=== PATIENT | male | born 1975 | race Caucasian/White ===

== ENCOUNTER 2024-08-12 15:23 | Emergency (ER) | payer OTHER, SELFPAY ==
--- NOTE | ~2024-08-12 | CT_ITS ---
CTA chest PE protocol Ordering provider: Josue Gutierrez MD History: 48 years Male with . syncope. elevated dimer . Comparison: None. Technique: CT angiogram chest was performed following timed intravenous injection of contrast. Thin s lice axial images and reformatted coronal images were obtained. Three dimensional reformatted images of the chest were also obtained using a [employer] workstation. . Automated exposure control and iterati ve reconstruction technique were employed. The dose-length product was 891.37 mGy-cm. 100 mL Omnipaqu e 350 was given IV. Findings: PULMONARY ARTERIES: No pulmonary embolus. VISUALIZED THORACIC INLET: Normal. MEDIASTINUM: Aorta/coronary arteries: The thoracic aorta is normal. Heart/other: The heart is not enlarged. Lymph nodes: No mediastinal or hilar adenopathy. LUNGS: No pulmonary nodules or masses. No infiltrates or effusions. No pneumothorax. VISUALIZED UPPER ABDOMEN: the visualized upper abdomen is normal. MUSCULOSKELETAL: Soft tissues: The superficial soft tissues are normal. Bones: Age appropriate degenerative changes of the spine. IMPRESSION: No pulmonary embolism. No acute cardiopulmonary pathology. Reviewed, dictated and finalized at location A.
--- NOTE | ~2024-08-12 | CT_ITS ---
CT brain wo con Ordering provider: Patricia Lindsey APRN History: 48 years Male with . syncopal episode . Comparison: None. Technique: CT of the head without contrast. Radiation reduction technique utilized.The dose-length pr oduct was 605.33 mGy-cm. FINDINGS: BRAIN PARENCHYMA AND CSF SPACES: No midline shift, mass effect or hemorrhage. The brain parenchyma a nd CSF spaces are otherwise normal. VISUALIZED PARANASAL SINUSES: Left maxillary sinus disease. Otherwise, Well aerated. MASTOIDS: Well aerated. BONES: The bones appear intact. SOFT TISSUES: Visualized nasopharynx is normal. Superficial soft tissues are normal. IMPRESSION: No acute intracranial findings. Reviewed, dictated and finalized at location A.
--- NOTE | ~2024-08-12 | XR_ITS ---
XR chest 2V Ordering provider: Patricia Lindsey APRN History: 48 years Male with . syncopal episode, unknown cause . Comparison: None. FINDINGS: MEDIASTINUM: The cardiac silhouette is not enlarged. LUNGS: No infiltrates, effusions or pneumothorax. OTHER: No free air under the diaphragm. IMPRESSION: No acute cardiopulmonary pathology. Reviewed, dictated and finalized at location A.
[2024-08-12 16:20] VITALS: BP 149/93; PULSE 84; RESP 16; TEMP 36.6; O2SAT 99
--- NOTE | 2024-08-12 16:27 | ECG_ITS ---
Test Date: 2024-08-12 18:29:54 Measurements Intervals [place] Rate: 74 P: 41 MI: 184 QRS: 5 QRSD: 93 T: 19 QT: 367 QTc: 409 Interpretive Statements SINUS RHYTHM DELAYED PRECORDIAL R/S TRANSITION BASELINE ARTIFACT- I, II, III, AVR, AVL, AVF, V1-V2 BORDERLINE ECG No previous ECG available for comparison Electronically Signed On 08-12-2024 20:36:52 CDT by Kaivn Becker D.O.
--- NOTE | 2024-08-12 16:32 | ED.SYNCOPE ---
HPI - Syncope General Chief Complaint: Syncope <Patriciagosia Lindsey ADULT CARE MANAGER - Last Filed: 08/12/24 16:37> Stated Complaint: syncope <Patricia Fiore ANGELICA LindseyN - Last Filed: 08/12/24 16:37> Time Seen by Provider: 08/12/24 16:15 <Patricia Macarena Lindsey ADULT CARE MANAGER - Last Filed: 08/12/24 16:37> Focused HPI: Patient is a 48-year-old male who presents to the ER following a syncopal episode immediately prior to arrival. His family member reports they were eating dinner, sitting at a table, patient was talking when all of a sudden he ?slumped over. Patient's family member reports patient did not hit his head. The episode lasted approximately 30 seconds and pt was doing a little twitching afterwards. Pt did not have any episodes of choking prior to the event. Since the episode, patient reports he feels ?off. Patient denies any history of seizures, cardiac events or drug use. He denies any other medical history in reports I have not seen a doctor in 15 years. GENERAL: Well-appearing, well-nourished, and in no acute distress. HEAD: Normocephalic, atraumatic. CHEST: Clear to auscultation. ?No respiratory distress. HEART: Regular rate and rhythm.? NEURO: ?Alert and oriented x3. Cranial nerves intact. Patient screened in triage and initial orders placed.? ?Additional care and disposition to be based upon?diagnostic testing and treatment. <Patriciagosia Lindsey APRN - Last Filed: 08/12/24 16:37> History of Present Illness HPI narrative: Agree with the HPI above <Josue Gutierrez MD - Last Filed: 08/12/24 20:56> Related Data Allergies/Adverse Reactions: Allergies Allergy/AdvReac Type Severity Reaction Status Date / Time No Known Allergies Allergy Verified 08/12/24 15:24 <Patricia Lindsey APRN - Last Filed: 08/12/24 16:37> Review of Systems Review of Systems: Agree with the HPI above <Josue Gutierrez MD - Last Filed: 08/12/24 20:56> Exam Narrative: GENERAL: Well-appearing, well-nourished, and in no acute distress. HEAD: Normocephalic, atraumatic. CHEST: Clear to auscultation. ?No respiratory distress. HEART: Regular rate and rhythm.? NEURO: ?Alert and oriented x3. Cranial nerves intact. EXTREMITIES: Full range of motion, no unilateral deficits, no leg swelling or calf cramping <Josue Gutierrez MD - Last Filed: 08/12/24 20:56> Course Vital Signs Vital signs: Vital Signs Temperature 36.6 C 08/12/24 16:20 Pulse Rate 84 08/12/24 16:20 Respiratory Rate 16 08/12/24 16:20 Blood Pressure 149/93 H 08/12/24 16:20 Pulse Oximetry 99 08/12/24 16:20 Oxygen Delivery Room Air 08/12/24 16:20 Temperature 36.6 C 08/12/24 16:20 Pulse Rate 96 08/12/24 18:47 Respiratory Rate 16 08/12/24 17:55 Blood Pressure 122/88 08/12/24 18:47 Pulse Oximetry 97 08/12/24 17:55 Oxygen Delivery Room Air 08/12/24 16:20 <Patricia Lindsey, ADULT CARE MANAGER - Last Filed: 08/12/24 16:37> Vital Signs Temperature 36.6 C 08/12/24 16:20 Pulse Rate 84 08/12/24 16:20 Respiratory Rate 16 08/12/24 16:20 Blood Pressure 149/93 H 08/12/24 16:20 Pulse Oximetry 99 08/12/24 16:20 Oxygen Delivery Room Air 08/12/24 16:20 Temperature 36.6 C 08/12/24 16:20 Pulse Rate 96 08/12/24 18:47 Respiratory Rate 16 08/12/24 17:55 Blood Pressure 122/88 08/12/24 18:47 Pulse Oximetry 97 08/12/24 17:55 Oxygen Delivery Room Air 08/12/24 16:20 <Josue Gutierrez MD - Last Filed: 08/12/24 20:56> MDM - Syncope MDM Narrative Medical decision making narrative: 48-year-old male with no pertinent past medical history presenting to the emergency depart after a syncopal event prior to arrival. Patient was eating dinner in sitting on table talking to friends were all the sudden he felt like he was passing out. He lost consciousness briefly and regained consciousness after 30 seconds with some slight twitching his upper extremities. No seizure or shaking activity after the fact. Did take several minutes before coming to full consciousness according to the present at bedside but denies any seizure history in the family or personal history. No history of any cardiac dysrhythmias or cardiac events. No history of drug use. He was otherwise in his normal state of health. Clinically appears well has no complaints at this time denies any symptoms whatsoever. He has normal vital signs without any tachycardia, fever, hypoxia. Normal symmetric pulses, not any distress, no localized deficits from a neurological perspective. Differential diagnosis includes vasovagal event, orthostatic event, cardiac dysrhythmia, seizure, intracranial hemorrhage, subarachnoid hemorrhage, thromboembolic event. Workup was ordered including troponin, EKG, chest x-ray, D-dimer, CT of the head and EKG. Placed on cardiac monitor technician and re-evaluated. Workup shows a slight leukocytosis of 11.3. Normal hemoglobin, normal platelets. Coagulation studies are normal except for DNR as elevated 1.24. CT angiography of the chest was ordered at this time for PE rule out. Electrolytes are unremarkable. Normal renal function, normal glucose, normal LFTs. Negative troponin and normal TSH. Normal urinalysis. Normal drug screen. CT of the head shows no acute intracranial findings. Chest x-ray shows no acute cardiopulmonary disease. EKG shows no arrhythmia, normal sinus rhythm. CT angiography is pending for his chest to rule out intrathoracic process or thromboembolic disease such as a PE. Family was made aware of the plan of care and patient comfortable without any symptoms at this time. CT angiography shows no PE. No acute cardiopulmonary disease. Patient remains asymptomatic and stable with normal vital signs. Given his unremarkable workup and being observed here for numerous hours without any recurrence of symptoms or syncopal event/aching I believe he can be safely discharged home at this time with regular primary care provider follow-up. Patient and family made aware of the plan and safe for discharge home at this time. <Josue Gutierrez MD - Last Filed: 08/12/24 20:56> Medical Records Attestation: I reviewed the patient's medical records. <Josue Gutierrez MD - Last Filed: 08/12/24 20:56> Lab Data Attestation: I reviewed the patient's lab results. <Josue Gutierrez MD - Last Filed: 08/12/24 20:56> Result diagrams: 08/12/24 17:50 08/12/24 17:50 <Patricia Lindsey APRN - Last Filed: 08/12/24 16:37> Labs: Lab Results 08/12/24 08/12/24 08/12/24 Range/Units 17:50 18:02 18:25 WBC 11.3 H (4.5-10.0) K/mm3 RBC 5.02 (4.6-6.20) M/mm3 Hgb 14.7 (14.0-18.0) g/dL Hct 44.7 (42.0-52.0) % MCV 89.0 (80-100) fl MCH 29.3 (26-34) pg MCHC 32.9 (32-36) g/dl RDW 13.4 (11.5-14.5) % Plt Count 231 (150-375) k/mm3 MPV 9.2 (7.4-10.4) fl Immature Gran % (Auto) 0.3 (0-0.5) % Neut % (Auto) 84.4 H (45.5-73.1) % Lymph % (Auto) 8.9 L (18.3-44.2) % [place] % (Auto) 5.5 (2.6-8.5) % Eos % (Auto) 0.6 (0-4.4) % Baso % (Auto) 0.3 (0.2-1.2) % Lymph # (Auto) 1.00 (0.9-3.2) K/mm3 [place] # (Auto) 0.6 (0.1-0.6) K/mm3 Eos # (Auto) 0.1 (0-0.3) K/mm3 Baso # (Auto) 0.0 (0.0-0.1) K/mm3 Abs Immat Gran (auto) 0.03 (0.00-0.031) K/mm3 Absolute Neuts (auto) 9.5 H (1.3-6.7) K/mm3 Absolute Nucleated RBC 0.000 (0.0-0.012) K/mm3 Nucleated RBC % 0.0 (0.0-0.2) % PT 14.3 (11.1-14.7) Seconds INR 1.1 APTT 28.5 (22.3-36.8) Seconds D-Dimer 1.24 H (<0.48) ug/mL Sodium 142 (137-145) mmol/L Potassium 4.0 (3.4-5.0) mmol/L Chloride 103 (98-107) mmol/L Carbon Dioxide 29 (22-30) mmol/L Anion Gap 10 (4-12) mmol/L BUN 22 H (9-20) mg/dL Creatinine 0.80 (0.7-1.3) mg/dL Estim Creat Clear Calc 150 ml/min Estimated GFR > 60 (59 - ) Glucose 108 (65-110) mg/dL POC Capillary Glucose 106 H (65-105) mg/dl Calcium 9.0 (8.4-10.2) mg/dL Magnesium 2.1 (1.6-2.3) mg/dL Total Bilirubin 0.3 (0.2-1.3) mg/dL AST 26 (17-59) U/L ALT 35 (6-50) U/L Alkaline Phosphatase 80 (38-126) U/L Troponin I < 0.012 (0.000-0.034) ng/mL NT-Pro-B Natriuret Pep < 20 (19.9-100) pg/mL Total Protein 7.0 (6.3-8.2) g/dL Albumin 4.4 (3.5-5.1) g/dL TSH (Reflex) 0.906 (0.465-4.68) uIU/mL Urine Color Yellow (Yellow) Urine Appearance Clear (Clear) Urine pH 5.0 (5.0-9.0) Ur Specific [place] 1.026 (1.001-1.035) Urine Protein Negative (Negative) mg/dL Urine Glucose (UA) Negative (Negative) mg/dL Urine Ketones Negative (Negative) mg/dL Ur Blood (Man) Negative (Negative) Urine Nitrate Negative (Negative) Urine Bilirubin Negative (Negative) Urine Urobilinogen 0.2 (<2.0) mg/dL Leukocyte Esterase Rfl Negative (Negative) LINDA/UL Urine Opiates Screen Negative (Negative) Urine Methadone Screen Negative (Negative) Ur Barbiturates Screen Negative (Negative) Ur Phencyclidine Scrn Negative (Negative) Ur Amphetamine Screen Negative (Negative) U Benzodiazepines Scrn Negative (Negative) Urine Cocaine Screen Negative (Negative) U Cannabinoids Screen Negative (Negative) <Patricia Fiore César, ADULT CARE MANAGER - Last Filed: 08/12/24 16:37> Lab Results 08/12/24 08/12/24 08/12/24 Range/Units 17:50 18:02 18:25 WBC 11.3 H (4.5-10.0) K/mm3 RBC 5.02 (4.6-6.20) M/mm3 Hgb 14.7 (14.0-18.0) g/dL Hct 44.7 (42.0-52.0) % MCV 89.0 (80-100) fl MCH 29.3 (26-34) pg MCHC 32.9 (32-36) g/dl RDW 13.4 (11.5-14.5) % Plt Count 231 (150-375) k/mm3 MPV 9.2 (7.4-10.4) fl Immature Gran % (Auto) 0.3 (0-0.5) % Neut % (Auto) 84.4 H (45.5-73.1) % Lymph % (Auto) 8.9 L (18.3-44.2) % [place] % (Auto) 5.5 (2.6-8.5) % Eos % (Auto) 0.6 (0-4.4) % Baso % (Auto) 0.3 (0.2-1.2) % Lymph # (Auto) 1.00 (0.9-3.2) K/mm3 [place] # (Auto) 0.6 (0.1-0.6) K/mm3 Eos # (Auto) 0.1 (0-0.3) K/mm3 Baso # (Auto) 0.0 (0.0-0.1) K/mm3 Abs Immat Gran (auto) 0.03 (0.00-0.031) K/mm3 Absolute Neuts (auto) 9.5 H (1.3-6.7) K/mm3 Absolute Nucleated RBC 0.000 (0.0-0.012) K/mm3 Nucleated RBC % 0.0 (0.0-0.2) % PT 14.3 (11.1-14.7) Seconds INR 1.1 APTT 28.5 (22.3-36.8) Seconds D-Dimer 1.24 H (<0.48) ug/mL Sodium 142 (137-145) mmol/L Potassium 4.0 (3.4-5.0) mmol/L Chloride 103 (98-107) mmol/L Carbon Dioxide 29 (22-30) mmol/L Anion Gap 10 (4-12) mmol/L BUN 22 H (9-20) mg/dL Creatinine 0.80 (0.7-1.3) mg/dL Estim Creat Clear Calc 150 ml/min Estimated GFR > 60 (59 - ) Glucose 108 (65-110) mg/dL POC Capillary Glucose 106 H (65-105) mg/dl Calcium 9.0 (8.4-10.2) mg/dL Magnesium 2.1 (1.6-2.3) mg/dL Total Bilirubin 0.3 (0.2-1.3) mg/dL AST 26 (17-59) U/L ALT 35 (6-50) U/L Alkaline Phosphatase 80 (38-126) U/L Troponin I < 0.012 (0.000-0.034) ng/mL NT-Pro-B Natriuret Pep < 20 (19.9-100) pg/mL Total Protein 7.0 (6.3-8.2) g/dL Albumin 4.4 (3.5-5.1) g/dL TSH (Reflex) 0.906 (0.465-4.68) uIU/mL Urine Color Yellow (Yellow) Urine Appearance Clear (Clear) Urine pH 5.0 (5.0-9.0) Ur Specific [place] 1.026 (1.001-1.035) Urine Protein Negative (Negative) mg/dL Urine Glucose (UA) Negative (Negative) mg/dL Urine Ketones Negative (Negative) mg/dL Ur Blood (Man) Negative (Negative) Urine Nitrate Negative (Negative) Urine Bilirubin Negative (Negative) Urine Urobilinogen 0.2 (<2.0) mg/dL Leukocyte Esterase Rfl Negative (Negative) LINDA/UL Urine Opiates Screen Negative (Negative) Urine Methadone Screen Negative (Negative) Ur Barbiturates Screen Negative (Negative) Ur Phencyclidine Scrn Negative (Negative) Ur Amphetamine Screen Negative (Negative) U Benzodiazepines Scrn Negative (Negative) Urine Cocaine Screen Negative (Negative) U Cannabinoids Screen Negative (Negative) <Josue Gutierrez MD - Last Filed: 08/12/24 20:56> Imaging Data Attestation: I personally reviewed and interpreted this imaging study as follows: <Josue Gutierrez MD - Last Filed: 08/12/24 20:56> My impression: Impressions Head CT 08/12/24 16:57 IMPRESSION: No acute intracranial findings. Chest X-Ray 08/12/24 17:41 IMPRESSION: No acute cardiopulmonary pathology. Chest CTA 08/12/24 20:15 IMPRESSION: No pulmonary embolism. No acute cardiopulmonary pathology. <Josue Gutierrez MD - Last Filed: 08/12/24 20:56> ECG Data EKG #1: Attestation: I personally reviewed and interpreted this ECG as follows: <Josue Gutierrez MD - Last Filed: 08/12/24 20:56> ECG completion date: 08/12/24 <Josue Gutierrez MD - Last Filed: 08/12/24 20:56> ECG completion time: 18:29 <Josue Gutierrez MD - Last Filed: 08/12/24 20:56> Prior ECG tracings: available for review <Josue Gutierrez MD - Last Filed: 08/12/24 20:56> Interpretation: Sinus rhythm, no ST segment elevations, depressions or inversions. QTC 409, QRS 93, AL interval 184. Rate of 74 beats per minute. No signs of ischemia or ectopy. <Josue Gutierrez MD - Last Filed: 08/12/24 20:56> Discharge Plan Discharge Clinical Impression: Syncope and collapse <Patricia Lindsey APRN - Last Filed: 08/12/24 16:37> Patient Disposition: Home <Patricia Lindsey APRN - Last Filed: 08/12/24 16:37> Condition: Stable <Patricia Lindsey APRN - Last Filed: 08/12/24 16:37> Instructions: Antibiotic Form, Syncope (ED) <Patricia Lindsey APRN - Last Filed: 08/12/24 16:37> Additional Instructions: Your laboratory studies and workup were all unremarkable. Your cardiac enzymes are undetectable, no signs of a blood clot or pulmonary embolism. Normal TSH, normal electrolytes, normal glucose. Normal CT of the head and chest x-ray. EKG without any ectopy/arrhythmia/ischemia. No emergent or urgent causes were found for your syncopal event and you will have a follow-up with a primary care provider. Return to the ER if you experience any recurrent syncopal events or developing any new concerning symptoms. <Patricia Lindsey APRN - Last Filed: 08/12/24 16:37> Patient Language: Monegasque <Patricia Lindsey APRN - Last Filed: 08/12/24 16:37> Follow-up/Referrals: Jon Horne MD [Physician] - 3 Days (Establish care, PCP) UNKNOWN,DOCTOR [Primary Care Provider] - <Patricia Lindsey APRN - Last Filed: 08/12/24 16:37> Time of Disposition: 20:56 <Patricia Lindsey APRN - Last Filed: 08/12/24 16:37> 20:56 <oJsue Gutierrez MD - Last Filed: 08/12/24 20:56>
[2024-08-12 17:55] VITALS: BP 137/90; PULSE 78; RESP 16; O2SAT 97
[2024-08-12 18:01] LABS: Basophils Percent Auto 0.3 % (0.2-1.2); Eosinophils Absolute Auto 0.1 K/mm3 (0-0.3); Eosinophils Percent Auto 0.6 % (0-4.4); Hematocrit 44.7 % (42.0-52.0); Hemoglobin 14.7 g/dL (14.0-18.0); Immature Granulocyte Absolute 0.03 K/mm3 (0.00-0.031); Immature Granulocyte Percent A 0.3 % (0-0.5); Lymphocytes Percent Auto 8.9 % (18.3-44.2); Mean Corpuscular HGB Conc 32.9 g/dl (32-36); Mean Corpuscular Hemoglobin 29.3 pg (26-34); Mean Platelet Volume 9.2 fl (7.4-10.4); Monocytes Absolute Auto 0.6 K/mm3 (0.1-0.6); Monocytes Percent Auto 5.5 % (2.6-8.5); Neutrophils Absolute Auto 9.5 K/mm3 (1.3-6.7); Neutrophils Percent Auto 84.4 % (45.5-73.1); Platelet Count Result 231 k/mm3 (150-375); Red Blood Count 5.02 M/mm3 (4.6-6.20); Red Cell Distribution Width 13.4 % (11.5-14.5); White Blood Count 11.3 K/mm3 (4.5-10.0)
[2024-08-12 18:09] LABS: Add Urine Microscopic? NO; Appearance Urine Clear (Clear); Bilirubin Urine Negative (Negative); Blood Urine Negative (Negative); Color Urine Yellow (Yellow); Glucose Urine UA Negative (Negative); Ketones Urine Negative (Negative); Leukocyte Esterase Ur Negative LEU/UL (Negative); Nitrate Urine Negative (Negative); Protein Urine Negative (Negative); Specific Grav Ur 1.026 (1.001-1.035); Urobilinogen Urine 0.2 mg/dL (<2.0)
[2024-08-12 18:18] LABS: Alanine Aminotransferase 35 U/L (6-50); Albumin Level 4.4 g/dL (3.5-5.1); Alkaline Phosphatase 80 U/L (38-126); Anion Gap 10 mmol/L (4-12); Aspartate Amino Transferase 26 U/L (17-59); Bilirubin,Total 0.3 mg/dL (0.2-1.3); Blood Urea Nitrogen 22 mg/dL (9-20); Carbon Dioxide 29 mmol/L (22-30); Chloride 103 mmol/L (98-107); Estimated CRCL calculation 150 ml/min; Estimated Glomerular Filt Rate > 60; Glucose 108 mg/dL (65-110); Magnesium 2.1 mg/dL (1.6-2.3); Sodium 142 mmol/L (137-145)
[2024-08-12 18:25] LABS: Amphetamine Screen Urine Negative (Negative); Barbiturate Screen Urine Negative (Negative); Benzodiazepines Screen Urine Negative (Negative); Cannabinoid Screen Urine Negative (Negative); Cocaine Screen Urine Negative (Negative); Methadone Screen Urine Negative (Negative); Opiate Screen Urine Negative (Negative); Phencyclidine Screen Urine Negative (Negative)
[2024-08-12 18:29] LABS: Partial Thromboplastin Time 28.5 Seconds (22.3-36.8)
[2024-08-12 18:32] LABS: Glucose Point of Care 106 mg/dl (65-105)
[2024-08-12 18:35] LABS: NT Pro B Type Natriuretic Pept < 20 pg/mL (19.9-100); Troponin I < 0.012 ng/mL (0.000-0.034)
[2024-08-12 18:41] LABS: D Dimer 1.24 ug/mL (<0.48)
[2024-08-12 18:42] LABS: INR 1.1; Prothrombin Time 14.3 Seconds (11.1-14.7)
[2024-08-12 18:45] VITALS: BP 131/88; PULSE 96
[2024-08-12 18:46] VITALS: BP 127/82; PULSE 98
[2024-08-12 18:47] VITALS: BP 122/88; PULSE 96
[2024-08-12 18:53] LABS: Thyroid Stimulating Hormone Reflex 0.906 uIU/mL (0.465-4.68)
== END 2024-08-12 21:06 | disposition home or self-care (01) ==
PROVIDERS: Registered Nurse; Emergency Provider Student in an Organized Health Care Education/Training Program
DX: R55 Syncope and collapse (principal); R94.31 Abnormal electrocardiogram [ECG] [EKG]
CPT/HCPCS: 36415; 70450; 71046; 71275; 80053; 80307; 81003; 82948; 83735; 83880; 84443; 84484; 85025; 85380; 85610; 85730; 93005; 99284; Q9967